=== PATIENT | female | born 1960 | race Caucasian/White ===

== ENCOUNTER 2022-06-27 06:46 | Observation (INO) ==
[~2022-06-27 06:46] MED LIST: Buffered Lidocaine 1% SYRIN 1 ml INTRADERM ONE; Dexamethasone IV 4 MG/ML VIAL 1 ml VIAL IV SLOW PU ONE; Famotidine IV 10 MG/ML 2 ml VIAL (20 mg) IV ONE; Lactated Ringers 1000 ml BAG 1,000 ML IV SCH
[2022-06-27] MEDS ORDERED: Famotidine IV 10 MG/ML 2 ml VIAL (20 mg) ONE (07:06)
[2022-06-27] MEDS ORDERED: Dexamethasone IV 4 MG/ML VIAL 1 ml VIAL ONE (07:06)
[2022-06-27] MEDS ORDERED: ceFAZolin 2 GM PREMIX 2 GM/50 ML BAG ONE (07:06)
[2022-06-27] MEDS ORDERED: Buffered Lidocaine 1% SYRIN 1 ml INTRADERM ONE (07:36)
[2022-06-27] MEDS ORDERED: Naloxone 0.4 mg VIAL 0.4 mg/ml 1 ml VIAL IV PRN (08:53)
[2022-06-27] MEDS ORDERED: oxyCODONE/Acetamin 5/325 mg TAB PO PRN (08:53)
[2022-06-27] MEDS ORDERED: Prochlorperazine 5 mg/ml 2 ml VIAL (10 mg) IV PRN (08:53)
[2022-06-27] MEDS ORDERED: fentaNYL 100 mcg/2 ml 50 MCG/ML VIAL IV PRN (08:53)
[2022-06-27] MEDS ORDERED: Lidocaine 2% PF 5 ML VIAL ONE (08:54)
[2022-06-27] MEDS ORDERED: Phenylephrine IV 10 MG/ML 1 ml VIAL ONE ×2 (08:57→13:03)
[2022-06-27] MEDS ORDERED: fentaNYL 250 mcg/5 ml 50 MCG/ML 5 ml VIAL (250 MCG) ONE (09:00)
[2022-06-27] MEDS ORDERED: Midazolam 2 mg/2 ml VIAL 1 mg/ml 2 ml VIAL (2 mg) ONE (09:00)
[2022-06-27] MEDS ORDERED: Glycopyrrolate IV 0.2 MG/ML 1 ML VIAL ONE (09:57)
[2022-06-27] MEDS ORDERED: Ondansetron 4 mg VIAL 2 MG/ML 2 ml VIAL ONE (10:58)
[2022-06-27] MEDS ORDERED: Ondansetron ODT 4 mg TAB 4 MG TAB PO PRN (12:04)
[2022-06-27] MEDS ORDERED: Morphine 2 MG/ML SYRINGE IV PRN (12:04)
[2022-06-27] MEDS ORDERED: Lactulose 30 ml UDC PO PRN (12:04)
[2022-06-27] MEDS ORDERED: Magnesium Hydroxide LIQ 30 ML UDC PO PRN (12:04)
[2022-06-27] MEDS ORDERED: Ondansetron 4 mg VIAL 2 MG/ML 2 ml VIAL IV PRN (12:04)
[2022-06-27] MEDS ORDERED: CMCS:Budesonide 3 mg CAP (NF) PO PRN (12:08)
[2022-06-27] MEDS ORDERED: Propofol 10 MG/ML 20 ML BTL ONE ×2 (12:56→14:28)
[2022-06-27] MEDS ORDERED: ceFAZolin 1 GM ADVAN 1 GM in NS 0.9% 50 ML 50 ML IVPB SCH (13:00)
[2022-06-27] MEDS: Lactated Ringers 1000 ml BAG 1,000 ML IV SCH ×2 (13:18→20:41)
[2022-06-27] MEDS ORDERED: Carboxymethylcellulos 1% OPTH 1 AMP BOTH EYES PRN (15:36)
[2022-06-27] MEDS: ceFAZolin 1 GM ADVAN 1 GM in NS 0.9% 50 ML 50 ML IVPB SCH (18:05)
[2022-06-27] MEDS: Magnesium Hydroxide LIQ 30 ML UDC PO SCH (20:37)
[2022-06-28] MEDS: ceFAZolin 1 GM ADVAN 1 GM in NS 0.9% 50 ML 50 ML IVPB SCH ×2 (01:54→09:32)
[2022-06-28 05:06] LABS: Hematocrit 28 % (35-47); Hemoglobin 9.2 g/dL (12.0-16.0); Mean Platelet Volume 10.1 fL (7.4-10.4); Platelet Count 186 10^3/uL (150-450)
[2022-06-28 05:29] LABS: Calcium 8.2 mg/dL (8.6-10.3); Potassium 4.2 mmol/L (3.5-5.0); eGFR CKD-EPI 97.5 (>60)
[2022-06-28] MEDS: Lactated Ringers 1000 ml BAG 1,000 ML IV SCH (06:12)
[2022-06-28] MEDS: Vitamin THERAPEUTIC TAB PO SCH (08:30)
[2022-06-28] MEDS: Magnesium Hydroxide LIQ 30 ML UDC PO SCH ×2 (09:39→21:11)
[2022-06-28] MEDS: Enoxaparin 30 MG/0.3 ML SYR SUBCUT SCH (11:24)
[2022-06-29 06:13] LABS: Hematocrit 32 % (35-47); Hemoglobin 10.2 g/dL (12.0-16.0); Mean Platelet Volume 10.1 fL (7.4-10.4); Platelet Count 180 10^3/uL (150-450)
[2022-06-29] MEDS: Vitamin THERAPEUTIC TAB PO SCH (09:25)
[2022-06-29] MEDS: Magnesium Hydroxide LIQ 30 ML UDC PO SCH (10:11)
[2022-06-29] MEDS: Enoxaparin 30 MG/0.3 ML SYR SUBCUT SCH (11:08)
[2022-06-29 13:07] VITALS: BP 100/60
== END 2022-06-29 16:20 | disposition home or self-care (01) ==
LOC: OR 06:46 → SSU 06:46
PROVIDERS: ADMIT Orthopaedic Surgery Adult Reconstructive Orthopaedic Surgery; ATTEND Orthopaedic Surgery Adult Reconstructive Orthopaedic Surgery